=== PATIENT | female | born 1995 | race Caucasian/White ===

== ENCOUNTER → 2018-08-21 | Outpatient (CLI) | payer BC ==
[2018-08-21 10:21] LABS: HCT 39.6 % (34.0-46.0); HGB 12.5 gm/dL (11.4-16.0); MCH 28.5 pg (25.0-35.0); MCHC 31.6 g/dL (31.0-37.0); MCV 90.2 fL (80.0-100.0); Mean Platelet Volume 7.7; Platelet Count 279 k/uL (150-450); RBC 4.39 m/uL (3.80-5.40); RDW 12.9 % (11.5-15.5); WBC 7.2 k/uL (3.8-10.6)
[2018-08-21 16:30] LABS: Thyroid Peroxidase Antibodies 45.3 U/mL (0.0-60.0)
[2018-08-21 16:41] LABS: Albumin/Globulin Ratio 2.63 (1.60-3.17); Anion Gap 10.3 mmol/L (4.00-12.00); Calcium 9.5 mg/dL (8.7-10.3); Carbon Dioxide 25.7 mmol/L (21.6-31.8); Globulin 1.9 g/dL (1.6-3.3); Potassium 4.2 mmol/L (3.5-5.5); Total Bilirubin 0.4 mg/dL (0.2-1.2); Total Protein 6.9 g/dL (6.2-8.2)
[2018-08-21 19:14] LABS: ACTH 18.9 pg/mL (0.00-45.99)
== END ==
LOC: LABWHC1 09:47
PROVIDERS: ATTEND Internal Medicine Endocrinology, Diabetes & Metabolism
DX: R53.83 Other fatigue (principal)
CPT/HCPCS: 36415; 80053; 82024; 82533; 82607; 84146; 84439; 84443; 84481; 85027; 86376

== ENCOUNTER → 2020-10-06 | Outpatient (CLI) | payer BC ==
--- NOTE | 2020-10-06 21:21 | CONS ---
CONSULTATION DATE OF SERVICE: 10/06/2020 25-year-old lady has [facility] for significant excessive daytime sleepiness awakenings from sleep and a significant amount of kicking at night and twitching. Twitching of her legs. HISTORY OF PRESENT ILLNESS SLEEP WAKE EVALUATION: SLEEP SCHEDULE: Patient usual sleep schedule on weekdays from 8:30/9 p.m. until 7/7:30 a.m. and on weekends from 9 or 10 p.m. until 8/9:00 am. FALLING ASLEEP: Sometimes has problems with falling asleep. Has TV set in bedroom. DURING SLEEP: She sleeps on the side position. According to her , she snores loudly and sometimes wakes up from sleep with episodes of gasping for air, panic attacks, nocturia, palpitations, heartburn, restless legs syndrome. The patient wakes up from sleep about 3 times with 2 episodes of nocturia. DURING THE DAY/SLEEP WAKE EVALUATION: In the morning, patient wakes up tired, has difficulties paying attention, falling asleep during the day, worry about the sleep. Has problems with memory, concentration, irritability, depression, anxiety and sexual dysfunction. Sometimes patient feels very tired during the day with the muscle weakness and very sleepy. Questionable positive history of hypnagogic hallucinations. No history of sleep paralysis or cataplexy. PAST MEDICAL HISTORY: Positive for anxiety and depression, sinus bradycardia, interstitial cystitis. PAST SURGICAL HISTORY: Lynn teeth removed. MEDICATIONS: Citalopram 10 mg once a day, vitamin D3, control pills. REVIEW OF SYSTEMS: Multiple awakenings from sleep, sleepiness during the day. FAMILY HISTORY: Heart problems, asthma, thyroid problems, diabetes, mental illness. PHYSICAL EXAMINATION: GENERAL: A lady without distress. BP 111/57, HR 66, RR 15, height 5 feet 7- 1/2 inches. Weight 191 pounds. Body mass index 29.4, temperature 98.3, oxygen saturation on room air 99%. HEENT: PERRLA, EOMI. Oropharynx low position of soft palate. Mallampati 3. Neck 15 inches in circumference. Neck: Supple, no JVD. Thyroid is not palpable. LUNGS: Clear to percussion and to auscultation. Good air exchange. No wheezing or rhonchi. HEART: S1, S2 regular. No murmurs, gallops, or rubs. ABDOMEN: Soft and nontender. Bowel sounds are present. No organomegaly appreciated. EXTREMITIES: No clubbing or cyanosis. BILL CHECKER: Awake, alert, and oriented X3. Cranial nerves 2 to 7 intact. There is no fasciculation or atrophy. noted. No focal deficits observed. IMPRESSION: 1. Loud snoring, awakenings from sleep with gasping for air. Low position of soft palate, Mallampati 3, sleepiness, obstructive sleep apnea-hypopnea syndrome. 2. Significant amount of movements of her feet, twitching while falling asleep and during the sleep, periodic limb movement syndrome. 3. Patient has sometimes extremely sleepy during the day, which is difficult for her to resist. May see vivid dreams during naps. Differential diagnosis include narcolepsy as well as cataplexy. 4. Depression. 5. Anxiety. 6. History of sinus bradycardia. 7. History of interstitial cystitis. PLAN: 1. Polysomnography for evaluation of patient's breathing during sleep and to check for periodic limb movements. 2. Multiple sleep latency test if the sleep study is negative for any physical abnormalities of sleep. 3. Following plan after viewing results of polysomnogram. 4. Sleep hygiene with regular time in bed for 8 hours. 5. Precautions related to driving. No driving if feeling sleepiness. 6. Please check iron profile, including ferritin level. Low level of iron may increase risk of restless legs and periodic limb movements. 7. Precautions related to driving. No driving if feeling sleepiness. Thank you very much for referring this patient for consultation. Sincerely, Odin Mc MD, PhD, FAASM Diplomat of [place] [employer] [place] [employer] Clerk of [facility] [place] MMODL / IJN: [id number] /
== END ==
LOC: SLEEP 13:11
PROVIDERS: ATTEND Internal Medicine
DX: G47.33 Obstructive sleep apnea (adult) (pediatric) (principal); G47.61 Periodic limb movement disorder; F32.9 Major depressive disorder, single episode, unspecified; F41.9 Anxiety disorder, unspecified; Z86.79 Personal history of other diseases of the circulatory system; Z87.448 Personal history of other diseases of urinary system
CPT/HCPCS: 99211